=== PATIENT | female | born 1995 | race Caucasian/White ===

== ENCOUNTER 2025-04-07 01:23 | Inpatient (IN) | payer OTHER ==
[~2025-04-07] VITALS: Ht 154.9 cm; Wt 93.0 kg
[2025-04-07] VITALS (11 sets, daily range): BP systolic 97–133; BP diastolic 63–82
[2025-04-07] MEDS ORDERED: RINGERS SOLUTION,LACTATED 1,000 ML IV SCH (02:15)
[2025-04-07] MEDS ORDERED: OXYTOCIN 20 UNITS/1000ML RL PIGGYBAG IV ONE (02:47)
[2025-04-07] MEDS ORDERED: ERYTHROMYCIN BASE OPHT 1GM EACH TUBE OP ONE (02:47)
[2025-04-07] MEDS ORDERED: CHLORHEXIDINE GLUCONATE 120 ML BOTTLE TOP ONE (02:48)
[2025-04-07] MEDS ORDERED: LIDOCAINE HCL 1% 10ML VIAL ONE (02:48)
[2025-04-07 03:00] LABS: BASO % 0.2 % (0.1-1.2); EOS # 0.01 (0.04-0.54); EOS % 0.1 % (0.7-7.0); LYMPH # 1.03 (1.18-3.74); LYMPH % 10.4 % (19.3-53.1); MEAN PLATELET VOLUME 11.20 fl (9.4-12.4); MONO # 0.46 (0.24-0.82); MONO % 4.6 % (4.7-12.5); NEUT # 8.38 (1.56-6.13); NEUT % 84.2 % (34.0-71.1); RED CELL DISTRIBUTION WIDTH 14.0 % (11.6-14.4)
[2025-04-07 03:13] LABS: ALT/SGPT 24.0 U/L (12-78); AST/SGOT 20.0 U/L (15-37); BILIRUBIN TOTAL 0.42 mg/dL (0.3-1.2); BUN CREA RATIO 19.0 (7.0-25.0); CREATININE SERUM 0.64 mg/dL (0.55-1.02); GFR 111.31; GLOBULINA 4.2 G/DL (2.4-3.5); GLUCOSE FASTING 89.0 mg/dL (65-100); OSMOLALITY SERUM 277.0 MOSM/KG (275-295)
[2025-04-07] MEDS ORDERED: OXYTOCIN 1,000 ML IV SCH (03:45)
[2025-04-07] MEDS ORDERED: CHLORHEXIDINE GLUCONATE 120 ML BOTTLE TOP SCH (03:45)
[2025-04-07 04:14] LABS: INR < 0.93
[2025-04-07] MEDS ORDERED: ACETAMINOPHEN 500 MG GEL..CAP PO PRN (05:45)
[2025-04-08] VITALS: BP 121/73
[2025-04-08 10:05] VITALS: BP 122/70; O2SAT 98
[2025-04-08 15:49] VITALS: BP 117/75
[2025-04-08 20:37] VITALS: BP 118/79
[2025-04-09] VITALS: BP 109/69
[2025-04-09 08:00] VITALS: BP 108/75
== END 2025-04-09 14:01 | disposition home or self-care (01) | DRG 807 ==
LOC: OB/GYN 01:23 → LDR 01:23 → OB/GYN 04:43
PROVIDERS: ADMIT Obstetrics & Gynecology; ATTEND Obstetrics & Gynecology
PROC: 10E0XZZ Delivery of Products of Conception, External Approach (ICD-10-PCS; principal; 2025-04-07)
PROC: 0KQM0ZZ Repair Perineum Muscle, Open Approach (ICD-10-PCS; 2025-04-07)
PROC: 4A1HXCZ Monitoring of Products of Conception, Cardiac Rate, External Approach (ICD-10-PCS; 2025-04-07)
DX: O70.1 Second degree perineal laceration during delivery (principal); Z37.0 Single live birth; Z3A.39 39 weeks gestation of pregnancy